=== PATIENT | female | born 1955 | race Two or more races ===

== ENCOUNTER 2024-10-12 23:12 | Emergency (ER) | payer OTHER ==
[~2024-10-12] VITALS: Ht 160 cm; Wt 63.6 kg
--- NOTE | 2024-10-12 23:53 | ED.PDOC ---
GI ASSESSMENT HPI Comments 69 year old female with a Hx of DM, HTN, High Lipids, and Diverticulitis presents to the ED for the c/c of Suprapubic ABD pain w/ associated N/, and Lower back pain. Pt states that her pain started yesterday afternoon, and has found no alleviating factors at this time. Pt denies eating or drinking anything out of the ordinary, recent sick contact, or any other modifiers, recent injuries at this time. Time Seen by MD: 23:48 Reviewed Notes: Nurses Notes, Medications, Allergies Allergies: Coded Allergies: NO KNOWN ALLERGIES (Unverified , 10/13/24) Home Meds Active Scripts Ondansetron Odt 4MG Tab (ZOFRAN PO) 4 Mg Tb, 4 MG PO TID PRN, #30 TAB Prn nausea/vomiting ODT TAB-DISSOLVE IN MOUTH, THEN SWALLOW Prov:DASHA RAGSDALE MD 10/13/24 Acetaminophen (Tylenol Extra Strength) 500 Mg Tab, 1000 MG PO Q6HP PRN, #30 TAB Prn fever or pain Prov:DASHA RAGSDALE MD 10/13/24 Dicyclomine Hcl (BENTYL CAPSULE) 10 Mg Cp, 2 CAP PO Q6HPRN PRN, #30 CAP 3 Refills Prn abdominal pain Prov:DASHA RAGSDALE MD 10/13/24 Metronidazole (Flagyl) 500 Mg Tab, 1 TAB PO TID for 10 Days, #30 TAB Prov:DASHA RAGSDALE MD 10/13/24 Ciprofloxacin Hcl (Cipro) 500 Mg Tab, 1 TAB PO BID for 10 Days, #20 TAB Prov:DASHA RAGSDALE MD 10/13/24 Information Source: Patient, Spouse Mode of Arrival: Ambulatory Timing: Hours Duration: Since onset, Hours Prehospital treatment: None Quality: Aching, Cramping Vomitus: None Stool: Normal Severity: Mild Recent: None Recent Hx of: Diabetes Pain Location: Diffuse Modifying Factors: Exertion, Movement Associated sign and symptoms: Nausea, Abdominal Pain Past Medical History PAST MEDICAL HISTORY: DM, High Lipids, HTN Surgical History: Unknown Family History Family History: Unknown Social History Smoker: Non-Smoker Alcohol: Denies ETOH Use Drugs: Denies Drug Use Lives In: Home All Other Systems: Reviewed and Negative (comprehensive exam was negavtive accept what is in the HPI) Physical Exam General Appearance: No Apparent Distress HEENT: Other (Pupils and face symmetric. Moist mucous membranes.) Neck: Full Range of Motion, Normal Inspection Respiratory: Lungs Clear, No Accessory Muscle Use, No Respiratory Distress, Normal Breath Sounds Cardiovascular: No Edema, No JVD, Regular Rate/Rhythm Breast Exam: Deferred Gastrointestinal: Soft, Tenderness (Mild generalized lower abdominal tenderness to palpation. No rebound or guarding. Nontender to percussion.) Genitalia: Deferred Pelvic: Deferred Rectal: Deferred Extremities: Normal inspection, Normal range of motion, Non-tender, No pedal edema Neurologic: Alert (Oriented x4), Normal Affect, Normal Mood, Other (Ambulatory) Cerebellar Function: NOT DONE Reflexes: NOT DONE Skin: Dry, Normal Color, Warm Lymphatic: NOT DONE Was a procedure done? Was a procedure done?: No GI differential Dx Differential Diagnosis: Appendicitis, Bowel Obstruction, Constipation, Divert icular disease, Gastroenteritis, Hernia, Ischemic Bowel, Ovarian cyst/torsion, Pancreatitis, Urinary Obstruction, UTI, Urolithiasis, Dehydration, Electrolyte Imbalance, Food Poisoning, Bacterial, Viral, Impaction, Ischemic Bowel, Mass, Stress Ulcer, Kidney Stone X-Ray, Labs, Meds, VS Vital Signs Date Time Temp Pulse Resp B/P (MAP) Pulse Ox O2 Delivery O2 Flow Rate FiO2 10/13/24 04:02 98.4 85 16 103/61 (75) 98 98.4 10/13/24 01:52 98.2 85 16 110/68 (82) 98 98.2 10/12/24 23:30 98.3 89 18 133/69 (90) 95 98.3 Lab Test 10/13/24 01:02 10/12/24 23:59 Range/Units Troponin I High Sensitivity 3 L < 3 L </=34 ng/L White Blood Count 7.9 4.4-10.8 10^3/uL Red Blood Count 4.63 4.0-5.20 10^6/uL Hemoglobin 15.0 12.2-16.2 g/dL Hematocrit 44.4 36.0-46.0 % Mean Corpuscular Volume 95.7 80.0-100.0 fL Mean Corpuscular Hemoglobin 32.3 H 28.0-32.0 pg Mean Corpuscular Hemoglobin Concent 33.8 32.0-36.0 g/dL Red Cell Distribution Width 13.0 11.8-14.3 % Platelet Count 264 140-450 10^3/uL Mean Platelet Volume 6.8 L 6.9-10.8 fL Neutrophils (%) (Auto) 47.4 37.0-80.0 % Lymphocytes (%) (Auto) 43.1 10.0-50.0 % Monocytes (%) (Auto) 7.1 0.0-12.0 % Eosinophils (%) (Auto) 1.7 0.0-7.0 % Basophils (%) (Auto) 0.7 0.0-2.0 % Neutrophils # (Auto) 3.7 1.6-8.6 10 ^3/uL Lymphocytes # (Auto) 3.4 0.4-5.4 10 ^3/uL Monocytes # (Auto) 0.6 0-1.3 10 ^3/uL Eosinophils # (Auto) 0.1 0-0.8 10 ^3/uL Basophils # (Auto) 0.1 0-0.2 10 ^3/uL Nucleated Red Blood Cells 0.0 % Sodium Level 138 136-145 mmol/L Potassium Level 3.6 3.5-5.1 mmol/L Chloride Level 103 98-107 mmol/L Carbon Dioxide Level 25 20-31 mmol/L Anion Gap 10 5-15 Blood Urea Nitrogen 16 9-23 mg/dL Creatinine 1.08 H 0.550-1.02 mg/dL Glomerular Filtration Rate Calc 56 >90 mL/min BUN/Creatinine Ratio 14.8 10.0-20.0 Serum Glucose 85 74-106 mg/dL Lactic Acid Level 1.4 0.4-2.0 mmol/L Calcium Level 10.0 8.7-10.4 mg/dL Total Bilirubin 0.5 0.2-1.0 mg/dL Aspartate Amino Transferase (AST) 24 13-40 U/L Alanine Aminotransferase (ALT) 22 7-40 U/L Alkaline Phosphatase 93 46-116 U/L Total Protein 8.3 H 5.7-8.2 g/dL Albumin 5.1 H 3.2-4.8 g/dL PATIENT: JOÃO TODD ACCT: [id number] UNIT: [id number] : 1955 LOC: ER ROOM / BED: / AGE / SEX: 69 / F ADM STATUS: REG ER SERVICE [id number] ORDERING PHYSICIAN: DASHA RAGSDALE MD PROCEDURE(s): ABPL - CT AB PEL WO CON-NO ORAL OR IV REASON: low abd pain rad to back ORDER NUMBER(s): [id number], ACCESSION NUMBER(s): [id number] CT SCAN ABDOMEN AND PELVIS WITHOUT CONTRAST CLINICAL HISTORY: low abd pain rad to back TECHNIQUE: Helical axial images are obtained from the lung bases through the pelvis without oral contrast. No intravenous contrast was administered. Coronal and sagittal reformatted images were generated from thin section reconstructions. One or more of the following radiation dose reduction techniques were used for this examination: automated exposure control, adjustment of the mA and/or kV according to patient size, use of iterative reconstruction technique. COMPARISON: None FINDINGS: LOWER THORAX: Mild scattered atelectasis/ scarring in the imaged lung bases. ABDOMEN AND PELVIS: Evaluation of visceral and vascular structures is limited due to lack of contrast administration. As visualized, the unenhanced liver, spleen, pancreas and adrenals appear grossly unremarkable. No sizable, radiopaque cholelithiasis or biliary ductal dilatation. No hydroureteronephrosis or sizable, obstructing urinary tract calculi identified. Aortoiliac atherosclerotic changes. No evidence of abdominal aortic aneurysm. No evidence of bowel obstruction. Normal caliber appendix. No free intraperitoneal air or fluid identified. The bladder is underdistended. No sizable bladder calculus as visualized. No destructive osseous lesions identified. Degenerative changes at L5-S1. IMPRESSION: No bowel obstruction, free intraperitoneal air/fluid or sizable inflammatory collections identified on this noncontrast examination. HS:Y X-Ray, Labs, Meds, VS Comment 69-year-old female with a history of diverticular disease, hypertension, diabetes and dyslipidemia complaining of lower abdominal pain associated with nausea Vitals unremarkable Exam remarkable for lower abdominal tenderness to palpation Rhythm strip independently interpreted by me: Sinus rhythm, rate 89, no ectopy. CT abdomen and pelvis IMPRESSION: No bowel obstruction, free intraperitoneal air/fluid or sizable inflammatory collections identified on this noncontrast examination. CBC, CMP, lactate and 2 serial troponins unremarkable for any abnormality of acute significance Patient treated with the following in the ED: 1 L 0.9 normal saline IV bolus, morphine 4 mg IV, Zofran 4 mg IV On re-evaluation, patient states symptoms have improved. Vitals were stable. Hospitalization was considered, however patient had rapid improvement of symptoms with treatment in the ED, workup is essentially unremarkable, and I no longer feel hospitalization is necessary. Patient now appears stable for discharge with close outpatient follow-up with her primary physician. Patient did not provide a urine sample, so I will provide antibiotic coverage for possible UTI and/or early diverticulitis. Rx Tylenol, Bentyl, Cipro, Flagyl Time of 1ST Reevaluation: 00:19 Reevaluation 1ST: Unchanged Patient Education/Counseling: Diagnosis, Treatment, Need For Follow Up Family Education/Counseling: Diagnosis, Treatment, Need For Follow Up SEPSIS Sepsis Screen Physician Orders Urinalysis (10/12/24 23:46) Ct Ab Pel Wo Con-No Oral Or Iv (10/12/24 23:46) Blood Culture (10/12/24 23:46) Vital Signs Date Time Temp Pulse Resp B/P (MAP) Pulse Ox O2 Delivery O2 Flow Rate FiO2 10/13/24 04:02 98.4 85 16 103/61 (75) 98 98.4 10/13/24 01:52 98.2 85 16 110/68 (82) 98 98.2 10/12/24 23:30 98.3 89 18 133/69 (90) 95 98.3 Laboratory Tests Test 10/12/24 23:59 Lactic Acid Level 1.4 mmol/L (0.4-2.0) White Blood Count 7.9 10^3/uL (4.4-10.8) Departure 1 Departure Time of Disposition: 02:53 Impression: Primary Impression: Abdominal pain Qualified Codes: R10.30 - Lower abdominal pain, unspecified Disposition: 01 HOME / SELF CARE / HOMELESS Condition: Stable Additional Instructions: Your blood tests were unremarkable. Your CT scan was unremarkable. I have prescribed medication for your symptoms. I have also prescribed antibiotics to cover a possible urinary tract infection or early diverticulitis. Follow-up with your primary doctor in 1-2 days. Return to ER for persistent or worsening symptoms. [place] [id number] Ph: [phone] DIAGNOSTIC IMAGING Diagnostic Imaging Report : [id number] Signed PATIENT: JOÃO TODD ACCT: [id number] UNIT: [id number] : 1955 LOC: ER ROOM / BED: / AGE / SEX: 69 / F ADM STATUS: REG ER SERVICE [id number] ORDERING PHYSICIAN: DASHA RAGSDALE MD PROCEDURE(s): ABPL - CT AB PEL WO CON-NO ORAL OR IV REASON: low abd pain rad to back ORDER NUMBER(s): [id number], ACCESSION NUMBER(s): [id number] CT SCAN ABDOMEN AND PELVIS WITHOUT CONTRAST CLINICAL HISTORY: low abd pain rad to back TECHNIQUE: Helical axial images are obtained from the lung bases through the pelvis without oral contrast. No intravenous contrast was administered. Coronal and sagittal reformatted images were generated from thin section reconstructions. One or more of the following radiation dose reduction techniques were used for this examination: automated exposure control, adjustment of the mA and/or kV according to patient size, use of iterative reconstruction technique. COMPARISON: None FINDINGS: LOWER THORAX: Mild scattered atelectasis/ scarring in the imaged lung bases. ABDOMEN AND PELVIS: Evaluation of visceral and vascular structures is limited due to lack of contrast administration. As visualized, the unenhanced liver, spleen, pancreas and adrenals appear grossly unremarkable. No sizable, radiopaque cholelithiasis or biliary ductal dilatation. No hydroureteronephrosis or sizable, obstructing urinary tract calculi identified. Aortoiliac atherosclerotic changes. No evidence of abdominal aortic aneurysm. No evidence of bowel obstruction. Normal caliber appendix. No free intraperitoneal air or fluid identified. The bladder is underdistended. No sizable bladder calculus as visualized. No destructive osseous lesions identified. Degenerative changes at L5-S1. IMPRESSION: No bowel obstruction, free intraperitoneal air/fluid or sizable inflammatory collections identified on this noncontrast examination. HS:Y e-Prescriptions Ondansetron Odt 4MG Tab (ZOFRAN PO) 4 Mg Tb 4 MG PO TID PRN, #30 TAB Prn nausea/vomiting ODT TAB-DISSOLVE IN MOUTH, THEN SWALLOW Prov: DASHA RAGSDALE MD 10/13/24 Acetaminophen (Tylenol Extra Strength) 500 Mg Tab 1000 MG PO Q6HP PRN, #30 TAB Prn fever or pain Prov: DASHA RAGSDALE MD 10/13/24 Dicyclomine Hcl (BENTYL CAPSULE) 10 Mg Cp 2 CAP PO Q6HPRN PRN, #30 CAP 3 Refills Prn abdominal pain Prov: DASHA RAGSDALE MD 10/13/24 Metronidazole (Flagyl) 500 Mg Tab 1 TAB PO TID for 10 Days, #30 TAB Prov: DASHA RAGSDALE MD 10/13/24 Ciprofloxacin Hcl (Cipro) 500 Mg Tab 1 TAB PO BID for 10 Days, #20 TAB Prov: DASHA RAGSDALE MD 10/13/24 Discharged With: Spouse Critical Care Note Critical Care Time?: No Stability Stability form required: No Heart Score Heart Score: Heart Score Response (Comments) Value History N/A 0 EKG N/A 0 Age N/A 0 Risk Factors N/A 0 Troponin N/A 0 Total 0 I personally scribed for DASHA RAGSDALE MD ([email or web address]) on 10/12/24 at 23: 53. Electronically submitted by Salvador Velarde ([email or web address]). I personally scribed for DASHA RAGSDALE MD ([email or web address]) on 10/13/24 at 02:14. Electronically submitted by Salvador Velarde ([email or web address]). DASHA RAGSDALE MD Oct 12, 2024 23:53
[2024-10-13 00:31] LABS: Hematocrit 44.4 % (36.0-46.0); Hemoglobin 15.0 g/dL (12.2-16.2); Mean Corpuscular Hemoglobin 32.3 pg (28.0-32.0); Mean Corpuscular Volume 95.7 fL (80.0-100.0); Nucleated Red Blood Cells % 0.0 %
[2024-10-13 01:06] LABS: Alanine Aminotransferase 22 U/L (7-40); Alkaline Phosphatase 93 U/L (46-116); Anion Gap 10 (5-15); BUN/Creatinine Ratio 14.8 (10.0-20.0); Blood Urea Nitrogen 16 mg/dL (9-23); Calcium 10.0 mg/dL (8.7-10.4); Carbon Dioxide 25 mmol/L (20-31); Chloride 103 mmol/L (98-107); Glucose 85 mg/dL (74-106); Potassium 3.6 mmol/L (3.5-5.1); Sodium 138 mmol/L (136-145)
[2024-10-13 01:07] LABS: Bilirubin, Total 0.5 mg/dL (0.2-1.0)
[2024-10-13 01:16] LABS: Albumin 5.1 g/dL (3.2-4.8); Total Protein 8.3 g/dL (5.7-8.2)
--- NOTE | 2024-10-13 01:27 | DVH ---
CT SCAN ABDOMEN AND PELVIS WITHOUT CONTRAST CLINICAL HISTORY: low abd pain rad to back TECHNIQUE: Helical axial images are obtained from the lung bases through the pelvis without oral cont rast. No intravenous contrast was administered. Coronal and sagittal reformatted images were generate d from thin section reconstructions. One or more of the following radiation dose reduction techniques were used for this examination: automated exposure control, adjustment of the mA and/or kV according to patient size, use of iterative reconstruction technique. COMPARISON: None FINDINGS: LOWER THORAX: Mild scattered atelectasis/ scarring in the imaged lung bases. ABDOMEN AND PELVIS: Evaluation of visceral and vascular structures is limited due to lack of contrast administration. As visualized, the unenhanced liver, spleen, pancreas and adrenals appear grossly unremarkable. No si zable, radiopaque cholelithiasis or biliary ductal dilatation. No hydroureteronephrosis or sizable, obstructing urinary tract calculi identified. Aortoiliac atherosclerotic changes. No evidence of abdominal aortic aneurysm. No evidence of bowel obstruction. Normal caliber appendix. No free intraperitoneal air or fluid ident ified. The bladder is underdistended. No sizable bladder calculus as visualized. No destructive osseous lesions identified. Degenerative changes at L5-S1. IMPRESSION: No bowel obstruction, free intraperitoneal air/fluid or sizable inflammatory collections identified o n this noncontrast examination. HS:Y
[2024-10-13] MEDS: MORPHINE SULFATE 4 MG/ML SYR/VIAL IV ONE (02:51)
[2024-10-13] MEDS: SODIUM CHLORIDE 0.9% 1,000 ML IV ONE (02:51)
[2024-10-13] MEDS: ONDANSETRON HCL 4 MG/2 ML VIAL IV ONE (02:51)
[2024-10-13] MEDS ORDERED: ACET-1304 PO (02:56)
[2024-10-13] MEDS ORDERED: ZOFR4T PO (02:56)
[2024-10-13] MEDS ORDERED: METR-344 PO (02:56)
[2024-10-13] MEDS ORDERED: CIPR-173 PO (02:56)
[2024-10-13] MEDS ORDERED: DICY10CA PO (02:56)
[2024-10-13 04:02] VITALS: BP 103/61; PULSE 85; RESP 16; TEMP 98.4; O2SAT 98
== END 2024-10-13 04:41 | disposition home or self-care (01) ==
LOC: ER 23:12
DX: R10.33 Periumbilical pain (principal); R11.0 Nausea; M54.50 Low back pain, unspecified; I10 Essential (primary) hypertension; E11.9 Type 2 diabetes mellitus without complications; Z79.899 Other long term (current) drug therapy
CPT/HCPCS: 36415; 74176; 80053; 83605; 84484; 85025; 87040